=== PATIENT | female | born 1990 | race Two or more races ===

== ENCOUNTER 2025-07-09 19:58 | Emergency (ER) | payer OTHER ==
[~2025-07-09] VITALS: Ht 157.5 cm; Wt 99.8 kg
[2025-07-09 20:48] LABS: PLATELET COUNT (AUTO) 270 K/uL (150-450); RED BLOOD CELL COUNT(AUTO) 4.47 MIL/uL (4.0-5.2); RED CELL DISTRIBUTION WIDTH 16.8 % (11.5-15.0); WHITE BLOOD COUNT (AUTO) 10.4 K/uL (4.3-11.0)
[2025-07-09 20:52] LABS: CALCIUM, SERUM 9.0 mg/dL (8.5-10.1); CREATININE 0.7 mg/dL (0.6-1.3); SODIUM SERUM 142.0 mmol/L (136-145); UREA NITROGEN, BLOOD 9.0 mg/dL (7-18)
[2025-07-09 21:00] LABS: ASPARTATE AMINOTRANSFERASE 15.0 U/L (15-37); TOTAL PROTEIN, SERUM 8.0 g/dL (6.4-8.2)
[2025-07-09] MEDS ORDERED: ONDANSETRON HCL/PF 4 MG/2 ML VIAL ONE (22:31)
[2025-07-09 22:32] LABS: APPEARANCE,URINE CLEAR (CLEAR); BLOOD, URINE NEGATIVE Ery/uL (NEGATIVE); LEUKOCYTE ESTERASE ,URINE NEGATIVE (NEGATIVE); NITRITE, URINE NEGATIVE (NEGATIVE); UGLUCOSE NEGATIVE (NEGATIVE)
[2025-07-09] MEDS: ONDANSETRON HCL/PF - ER 4 MG/2 ML VIAL IV ONE (22:35)
[2025-07-09] MEDS: IV NS 0.9% 1,000 ML BAG IV ONE (22:35)
[2025-07-09 22:41] LABS: PREGNANCY TEST URINE QUAL NEGATIVE (NEGATIVE)
[2025-07-09 22:53] LABS: ADD URINE CULTURE YES; SQUAMOUS EPITHELIAL CELL,UR Many /HPF (None Seen)
[2025-07-09 22:54] LABS: CALCIUM OXALATE CRYSTALS,UR Moderate /HPF (None Seen)
[2025-07-09] MEDS ORDERED: KETOROLAC TROMETHAMINE INJ 30 MG/ML VIAL ONE (23:27)
[2025-07-09] MEDS: KETOROLAC TROMETHAMINE INJ 30 MG/ML VIAL IV ONE (23:29)
[2025-07-09] MEDS ORDERED: CT SWABBABLE VALVE TRANS SET 1 EA INFUS.SET MC ONE (23:33)
[2025-07-09] MEDS ORDERED: IOHEXOL-300 100 ML VIAL IV ONE (23:33)
[2025-07-09] MEDS ORDERED: IV NS 0.9% 250 ML IV ONE (23:35)
[2025-07-10 00:34] VITALS: BP 118/70; TEMP 98; O2SAT 98
== END 2025-07-10 00:38 | disposition home or self-care (01) ==
LOC: ER 20:03
DX: R10.31 Right lower quadrant pain (principal); N83.209 Unspecified ovarian cyst, unspecified side; R10.20 Pelvic and perineal pain unspecified side; Z98.891 History of uterine scar from previous surgery
CPT/HCPCS: 99285; 74177; 96374; 76856; 96361; 96375; 85025; 80048; 83605; 83690; 80076; 84703; 81001; 36415; 84702; J1885; J2405 ×2; J7050; Q9967; 87086-TC